=== PATIENT | female | born 1965 | race Caucasian/White ===

== ENCOUNTER → 2016-10-17 | Outpatient (CLI) | payer MEDICAID ==
[~2016-10-17] MED LIST: ASPIRIN 81MG TA81 MG PO; LEVOTHYROXIN0.075 M1 PO; LISINOPRIL10 MG PO; LORTAB 5/500 501 TAB PO; PERCOCET 5/3251 EACH PO; TORADOL10 MG PO; ZOCOR20 MG PO
[2016-10-17 08:33] LABS: HEMOGLOBIN 13.8 g/dL (12.2-16.2); LYMPH # 1.9 K/mm3 (0.7-4.5); LYMPH % 28.6 % (10-50.0)
[2016-10-17 10:50] LABS: BUN 12 mg/dL (7-18)
[2016-10-17 10:53] LABS: GFR (ESTIMATED) 105 ML/MIN (59-)
[2016-10-18 09:38] LABS: RA Latex Turbid. <10.0 IU/mL (0.0-13.9)
[2016-10-18 18:40] LABS: Antinuclear Antibodies, IFA Negative (.)
== END ==
LOC: LAB 08:16
PROVIDERS: Emergency Medicine
DX: R53.83 Other fatigue (principal)

== ENCOUNTER → 2016-10-28 | Outpatient (CLI) | payer MEDICAID ==
--- NOTE | 2016-10-28 17:30 | RADIOLOGY REPORT PS360 ---
PROCEDURE: 2-D M-mode and color Doppler study INDICATIONS FOR THE TEST: Chest pain COPD Heart Murmur Tobacco Smoking Palpitations Fatigue Syncope Edema HypertensionXDiabetes Mellitus Rheumatic Fever SOBXDOE Obesity Hyperlipidemia Family History HD Additional History CAD TDS SECONDARY TO OBESITY PATIENT INFORMATION HEIGHT: 61 WEIGHT:210 GENDER: Female B/P:169/94 2-D/M-MODE INTERPRETATION: 2-D MEASUREMENTS OBSERVED VALUES IN CMS Right Ventricular Dimension (RVDd) 3.2 Interventricular Septum (Thickness)(IVsd) .9 Left Ventricular Internal Dimensions(LVIDd) 5.2 Left Ventricular Posterior Wall (Thickness)(LVPWd) 1.0 Aortic Root 2.7 Aortic Cusp Separation 1.9 Left Atrial Dimensions (LAD) 3.1 2D 1. Technically difficult study because of the patient's factor and poor acrostic Windows. 2. The left atrium is qualitatively mildly enlarged left ventricle is normal size, there is mild qualitative concentric left ventricular hypertrophy seen, visually estimated ejection fraction 50% with no obvious regional wall motion abnormality, endocardial surface are poorly visualized. 3. The right atrium is normal size, the right ventricle is mildly enlarged with normal contractility. 4. The aortic valve is minimally thickened and fibrosed consistent with mild aortic sclerosis. 5. The mitral valve leaflets are minimally thickened there is no mitral stenosis. 6. The tricuspid valve restructure normal 7. The pulmonic valve not well visualized. 8. No significant pericardial effusion noted. DOPPLER INTERROGATION: The Doppler interrogation of the aortic mitral and tricuspid valvular presence of trace mitral and tricuspid regurgitation of no hemodynamic significance, tricuspid regurgitant jet velocity insufficient for calculus and of the right ventricular systolic pressure, Doppler evidence of impaired LV relaxation seen. CONCLUSION: 1. Normal left ventricular size, visually estimated ejection fraction 50% with no obvious regional wall motion abnormality, Doppler evidence of impaired LV relaxation. 2. Mildly enlarged right ventricle with normal contractility. 3. Trace mitral and tricuspid regurgitation, tricuspid regurgitant jet velocity insufficient for calculation of the right ventricular systolic pressure. 4. No significant pericardial effusion noted
== END ==
LOC: RT 10-24 08:00
DX: R06.02 Shortness of breath (principal); I25.10 Atherosclerotic heart disease of native coronary artery without angina pectoris; I10 Essential (primary) hypertension; E78.5 Hyperlipidemia, unspecified

== ENCOUNTER → 2016-11-12 | Outpatient (CLI) | payer MEDICAID ==
[2016-11-12 16:56] LABS: AMPHETAMINES/METAMPHETAMINES NEGATIVE ng/mL (<1000)
== END ==
LOC: LAB 15:50
PROVIDERS: Emergency Medicine
DX: Z79.899 Other long term (current) drug therapy (principal)

== ENCOUNTER → 2016-12-20 | Outpatient (CLI) | payer MEDICAID ==
--- NOTE | 2016-12-20 13:33 | CARDIOVASCULAR REPORT ---
"Venous Exam Indications: 729.5 Pain in limb. 782.3 Edema. 451.19 Phlebitis and thrombophlebitis of other. H/O vein stripping of left leg. IMPRESSIONS 1. There is no evidence of significant Reflux. 2. No evidence of deep or superficial vein thrombosis involving the left lower extremity 3. No evidence of deep or superficial vein thrombosis involving the right lower extremity Complete lower extremity venous duplex evaluation. Doppler flow study including spectral analysis, color and kramer scale imaging. Location: Vascular laboratory. Patient status: Outpatient. Tables: Venous flow and imaging: + +-------+ + |Location |Overall|Flow properties | + +-------+ + |Right common femoral |Patent |Normal phasicity; spontaneous; | | | |normal augmentation; compressible| + +-------+ + |Right saphenofemoral junction|Patent |Compressible | + +-------+ + |Right profunda femoral |Patent |Compressible | + +-------+ + |Right femoral |Patent |Normal phasicity; spontaneous; | | | |normal augmentation; | | | |compressible; no reflux | + +-------+ + |Right greater saphenous |Patent |Normal phasicity; spontaneous; | | | |normal augmentation; compressible| + +-------+ + |Right popliteal |Patent |Normal phasicity; spontaneous; | | | |normal augmentation; compressible| + +-------+ + |Right posterior tibial |Patent |Compressible | + +-------+ + |Right peroneal |Patent |Compressible | + +-------+ + |Right gastrocnemius |Patent |Compressible | + +-------+ + |Right soleal |Patent |Compressible | + +-------+ + |Left common femoral |Patent |Normal phasicity; spontaneous; | | | |normal augmentation; compressible| + +-------+ + |Left saphenofemoral junction |Patent |Compressible | + +-------+ + |Left profunda femoral |Patent |Compressible | + +-------+ + |Left femoral |Patent |Normal phasicity; spontaneous; | | | |normal augmentation; compressible| + +-------+ + |Left greater saphenous |Patent |Normal phasicity; spontaneous; | | | |normal augmentation; compressible| + +-------+ + |Left popliteal |Patent |Normal phasicity; spontaneous; | | | |normal augmentation; compressible| + +-------+ + |Left posterior tibial |Patent |Compressible | + +-------+ + |Left peroneal |Patent |Compressible | + +-------+ + |Left gastrocnemius |Patent |Compressible | + +-------+ + |Left soleal |Patent |Compressible | + +-------+ + (Report amended ) Electronically signed by: Destin Hughes [id number]"
== END ==
LOC: RT 12:51
DX: M79.605 Pain in left leg (principal); M79.604 Pain in right leg

== ENCOUNTER → 2017-04-21 | Outpatient (CLI) | payer MEDICAID ==
[~2017-04-21] MED LIST changes: +BISOPROLOL 5MG T5 MG PO; +CLARITIN 10MG T10 MG PO; +FLONASE 50 MCG16 GM; +FUROSEMIDE 20MG20 MG PO; +LEVOTHYROXIN0.125 M1 PO; +LISINOPRIL 10MG10 MG PO; +LOSARTAN POTASS1 TAB PO; +ONDANSETRON4 M1 PO; +SIMVASTATIN20 MG PO
[2017-04-23 08:42] LABS: RA Latex Turbid. <10.0 IU/mL (0.0-13.9)
[2017-04-23 18:36] LABS: Antinuclear Antibodies, IFA Negative (.)
== END ==
LOC: LAB 17:18
PROVIDERS: Emergency Medicine
DX: R35.0 Frequency of micturition (principal)